=== PATIENT | male | born 1955 | race Caucasian/White ===

== ENCOUNTER 2023-07-26 06:17 | Day surgery (SDC) | payer MEDICARE, BC ==
[2023-07-19 16:02] LABS: BILIRUBIN,URINE NEGATIVE (Neg); CLARITY,URINE CLEAR (Clear); COLOR,URINE YELLOW (Yellow); GLUCOSE, URINE NEGATIVE (Neg); KETONES,URINE NEGATIVE (Neg); LEUKOCYTE ESTERASE ,URINE NEGATIVE (Neg); NITRITES, URINE NEGATIVE (Neg); OCCULT BLOOD,URINE NEGATIVE (Neg); PROTEIN,URINE NEGATIVE (Neg); UROBILINOGEN,URINE 0.2 E.U/dL (0.2-1.0)
[2023-07-19 16:07] LABS: BASOPHILS % (AUTO) 0.6 % (0-1); EOSINOPHILS # (AUTO) 0.1 X10'3 (0-0.9); EOSINOPHILS % (AUTO) 1.5 % (0-6); LYMPHOCYTES # (AUTO) 2.1 X10'3 (1.1-4.8); LYMPHOCYTES % (AUTO) 28.4 % (21-51); MEAN CORPUSCULAR HGB CONC 34.4 g/dL (33.0-36.5); MEAN PLATELET VOLUME 7.9 FL (7.4-10.4); MONOCYTES # (AUTO) 0.8 X10'3 (0-0.9); MONOCYTES % (AUTO) 11.1 % (2-12); NEUTROPHILS # (AUTO) 4.2 X10'3 (1.8-7.7); NEUTROPHILS % (AUTO) 58.4 % (42-75); PRE OP HEMATOCRIT 43.4 % (35.0-45.0); PRE OP HEMOGLOBIN 14.9 g/dL (12.0-16.0); PRE OP PLATELET COUNT 252 X10'3 (140-440); PRE OP WHITE BLOOD COUNT 7.3 10'3 (4.8-10.8); RED BLOOD COUNT 4.66 X10'6 (4.20-5.60); RED CELL DISTRIBUTION WIDTH 13.6 % (11.5-14.5)
[2023-07-19 16:08] LABS: UA COLLECTION TYPE CLN CATCH MIDSTREAM
[2023-07-19 16:17] LABS: ALBUMIN 3.5 G/DL (3.4-5.0); ALBUMIN/GLOBULIN RATIO 0.9 (1.1-1.5); ALKALINE PHOSPHATASE 76 IU/L (46-116); BLOOD UREA NITROGEN 15 MG/DL (7-18); CALCIUM 8.9 MG/DL (8.5-10.1); CHLORIDE 103 MMOL/L (99-107); CREATININE 0.94 MG/DL (0.40-0.90); PRE OP ALT 33 U/L (30-65); PRE OP ANION GAP 7 (8-16); PRE OP AST 14 U/L (10-37); PRE OP BILIRUB, TOTAL 0.3 MG/DL (0.0-1.0); PRE OP GLUCOSE 101 MG/DL (70-104); PRE OP POTASSIUM 3.9 MMOL/L (3.4-5.1); PRE OP SODIUM 136 MMOL/L (135-145); TOTAL CARBON DIOXIDE 26.3 MMOL/L (24-32); TOTAL PROTEIN 7.3 G/DL (6.4-8.2); eGFR 59 ML/MIN
[~2023-07-26] VITALS: Ht 175.3 cm; Wt 79.4 kg
[2023-07-26] VITALS (16 sets, daily range): BP systolic 116–141; BP diastolic 70–95; PULSE 69–95; RESP 11–16; TEMP 97.6; O2SAT 92–100
[~2023-07-26 06:17] MED LIST: NO HOME MEDS; cefazolin 2gm/D5W 100mL 100 ML IV ONE; famotidine 20mg tablet PO ONE; ringers solution, lacted 1,000 ML IV SCH
[2023-07-26] MEDS ORDERED: BUPIVAcaine/PF 2.5mg/ml (0.25%) 10ml vial ONE (08:41)
[2023-07-26] MEDS ORDERED: midazolam 1 mg/ML 2ml injection ONE (09:24)
[2023-07-26] MEDS ORDERED: fentaNYL/PF 50MCG/1 ML 2ML syringe ONE (09:24)
[2023-07-26] MEDS ORDERED: rocuronium 10mg/ml inj IV ONE ×2 (09:32→11:34)
[2023-07-26] MEDS ORDERED: LIDOcaine 2% (20mg/ml) 5ml vial ONE (09:32)
[2023-07-26] MEDS ORDERED: propofol inj 20 ML IV ONE (09:32)
[2023-07-26] MEDS ORDERED: dexamethasone sod phosphate 4mg/ml inj. ONE (09:32)
[2023-07-26] MEDS ORDERED: morphine 4 MG/ML inj SYRINge IV PRN (10:00)
[2023-07-26] MEDS ORDERED: meperidine/PF 25mg/ml syringe IV PRN ×2 (10:00)
[2023-07-26] MEDS ORDERED: enalaprilat dihydrate 2.5mg/2ml vial IV PRN (10:00)
[2023-07-26] MEDS ORDERED: ondansetron/PF 4mg/2ml inj IV PRN (10:00)
[2023-07-26] MEDS ORDERED: proCHLORperazine 10 MG/2 ml inj IV PRN (10:00)
[2023-07-26] MEDS ORDERED: ringers solution, lacted 1,000 ML IV SCH (10:00)
[2023-07-26] MEDS ORDERED: labetalol 20mg/4ml (5mg/ml) syringe IV PRN (10:00)
[2023-07-26] MEDS ORDERED: morphine 2 MG/ML inj. syringe IV PRN (10:00)
[2023-07-26] MEDS ORDERED: meperidine/PF 25mg/ml syringe ONE (10:13)
[2023-07-26] MEDS ORDERED: BUPIVAcaine/PF 2.5mg/ml (0.25%) 10ml vial IJ ONE (10:17)
[2023-07-26] MEDS ORDERED: acetaminophen 1,000mg/100ml IV 100 ML IV ONE (11:32)
[2023-07-26] MEDS ORDERED: ketorolac trometh. 30mg/ml inj. ONE (11:34)
[2023-07-26] MEDS ORDERED: bacitracin 15gm ointment TP ONE (11:37)
[2023-07-26] MEDS: meperidine/PF 25mg/ml syringe IV PRN ×2 (12:16→12:32)
[2023-07-26] MEDS ORDERED: HYDROcodone/acetaminophen 10/325mg tab PO ONE (14:05)
== END 2023-07-26 14:07 | disposition home or self-care (01) ==
LOC: PAS 06:17 → EDSEX 08:15 → PAS 14:07
PROVIDERS: ATTEND Surgery
DX: K40.20 Bilateral inguinal hernia, without obstruction or gangrene, not specified as recurrent (principal); D17.6 Benign lipomatous neoplasm of spermatic cord; L82.1 Other seborrheic keratosis; L98.8 Other specified disorders of the skin and subcutaneous tissue; R20.8 Other disturbances of skin sensation; Z79.899 Other long term (current) drug therapy; Z72.89 Other problems related to lifestyle; Z98.890 Other specified postprocedural states
CPT/HCPCS: 17110; 36415; 49650; 80053; 81003; 82948; 85025; 93005; C1781; J0131; J0690; J1100; J1885; J2175; J2250; J2704; J3010; J3490; J7030; J7120; Z7506; Z7508; Z7512; 88305; A4215; A4618; C1758